=== PATIENT | female | born 1955 | race Caucasian/White ===

== ENCOUNTER → 2017-10-30 | Outpatient (CLI) | payer SELFPAY | LOC: LAB SHORT 15:09 | DX: N39.0 Urinary tract infection, site not specified (principal); R30.0 Dysuria | CPT/HCPCS: 87077; 87086; 87186 ==

== ENCOUNTER → 2017-12-07 | Outpatient (CLI) | payer SELFPAY | END | disposition home or self-care (01) | LOC: LAB EV 11:30 | DX: R30.0 Dysuria (principal) | CPT/HCPCS: 87086 ==

== ENCOUNTER 2022-09-08 09:11 | Day surgery (SDC) | payer MEDICARE, OTHER ==
[~2022-09-08] VITALS: Ht 162.6 cm; Wt 68.9 kg
--- NOTE | 2022-09-08 09:31 | NUR ---
09/08/22 0931 Rick Dang CALL LIGHT WITHIN REACH. JORDIIN IN THE RIGHT EYE AT 0931 AND SHAMEKA AT 0933
== END 2022-09-08 10:33 | disposition home or self-care (01) ==
LOC: ORSCSDS 09:11
PROVIDERS: Student in an Organized Health Care Education/Training Program
PROC: 08RJ3JZ Replacement of Right Lens with Synthetic Substitute, Percutaneous Approach (ICD-10-PCS; principal; 2022-09-08 10:30)
DX: H25.13 Age-related nuclear cataract, bilateral (principal)
CPT/HCPCS: J2001; J2250; J2405; J3010; J7040; V2632

== ENCOUNTER 2023-01-05 08:26 | Day surgery (SDC) | payer MEDICARE, OTHER ==
[~2023-01-05] VITALS: Ht 162.6 cm; Wt 73.6 kg
--- NOTE | 2023-01-05 09:00 | NUR ---
01/05/23 0900 Kelsie Ozuna AT 0834 PLECLAIRET AT 0832
== END 2023-01-05 10:30 | disposition home or self-care (01) ==
LOC: ORSCSDS 08:26
PROVIDERS: Student in an Organized Health Care Education/Training Program
PROC: 08DK3ZZ Extraction of Left Lens, Percutaneous Approach (ICD-10-PCS; principal; 2023-01-05 09:30)
DX: H25.12 Age-related nuclear cataract, left eye (principal); Z96.1 Presence of intraocular lens
CPT/HCPCS: J2001; J2250; J3010; J7040; V2632